=== PATIENT | female | born 1960 | race Caucasian/White ===

== ENCOUNTER 2017-09-09 05:50 | Day surgery (SDC) | payer OTHER ==
[2017-09-09] MEDS ORDERED: DIPRIVAN 200 MG/20 ML IV ONE (05:51)
[2017-09-09] MEDS ORDERED: Versed 2 MG/2 ML Injection IV ONE (05:51)
[2017-09-09] MEDS ORDERED: Lactated Ringers 1,000 ML IV SCH (06:00)
[2017-09-09] MEDS ORDERED: Lactated Ringers 1,000 ML IV ONE ×2 (06:10→10:54)
[2017-09-09 07:56] VITALS: PULSE 62
[2017-09-09 08:20] VITALS: BP 132/78; O2SAT 100
--- NOTE | 2017-09-09 10:48 | OP ---
SURGERY DATE/TIME: 09/09/2017 0656 PREOPERATIVE DIAGNOSIS: Gastroesophageal reflux and rectal bleeding. POSTOPERATIVE DIAGNOSES: 1) Hiatal hernia. 2) Mild gatritis. 3) Colon polyp. PROCEDURES: 1) EGD. 2) Colonoscopy with biopsy. SURGEON: Dr. Burnette. ANESTHESIA: MAC. Medications given by anesthesia department. HISTORY: The patient is a 56 year-old white female presenting now for endoscopic evaluation. She reports that she has been having problems with gastroesophageal reflux for which she took omeprazole for. It did resolve after taking omeprazole. She has been off the medication with no further problems. However, the patient has also been complaining of rectal bleeding intermittently over the past few months. The patient reports she had a colonoscopy 30 years ago for unknown reasons but she felt was normal. The patient was reappraised of the risks of the procedure including the risk of perforation, phlebitis, untoward reaction to medication, bleeding and missed lesions. The patient verbalized her understanding and desired to have the procedure performed. DESCRIPTION OF PROCEDURE: The patient was given the medications by the anesthesia department. She had continuous pulse oximetry, ECG monitoring, intermittent blood pressure monitoring and tidal CO2 monitoring during the examination. She was placed in the left lateral decubitus position. A bite block was placed and the flexible Olympus gastroscope was used to intubate the oropharynx. The scope was easily introduced in the esophagus which appeared to be normal to the gastroesophageal junction where there appeared to be the hiatal hernia. The scope was introduced in the stomach. Normal gastric rugal folds were seen and these distended nicely with insufflation of air. The scope was passed along the greater curvature of the stomach to the antrum. The pylorus was encountered and intubated. The duodenum was inspected and found to be normal. The scope was withdrawn towards the stomach. A retroflex view was obtained of the lesser curvature, fundus and cardia regions of the stomach and we confirmed the presence of hiatal hernia. There was also noted to be mild gastritis in the gastric antrum. The scope was then removed from the patient. Next, a digital rectal examination was performed and revealed normal anal sphincter tone and no masses. The flexible Olympus pediatric colonoscope was used to intubate the rectum. A view of the colon was developed sequentially to the cecum. Upon insertion and withdrawal, including a retroflex view in the rectum was noted sessile polyp in the transverse colon measuring approximately 1 cm in diameter this was biopsied using cold biopsy technique to determine the nature of the lesion. There was also a smaller polyp noted in the sigmoid colon which measured approximately 0.5 cm in size and this was also biopsied using cold biopsy technique. The scope was removed from the patient who tolerated the procedure well and was sent back to OP recovery in good condition. The prep was noted to be fair.
== END 2017-09-09 08:36 | disposition home or self-care (01) ==
LOC: SDC 05:50
PROVIDERS: ATTEND Family Medicine
PROC: 0DJ08ZZ Inspection of Upper Intestinal Tract, Via Natural or Artificial Opening Endoscopic (ICD-10-PCS; principal; 2017-09-09)
PROC: 0DBN8ZX Excision of Sigmoid Colon, Via Natural or Artificial Opening Endoscopic, Diagnostic (ICD-10-PCS; 2017-09-09)
PROC: 0DBL8ZX Excision of Transverse Colon, Via Natural or Artificial Opening Endoscopic, Diagnostic (ICD-10-PCS; 2017-09-09)
DX: K44.9 Diaphragmatic hernia without obstruction or gangrene (principal); K29.70 Gastritis, unspecified, without bleeding; K21.9 Gastro-esophageal reflux disease without esophagitis; K62.5 Hemorrhage of anus and rectum; K63.5 Polyp of colon
CPT/HCPCS: J2250; J2704